=== PATIENT | male | born 1965 | race Caucasian/White ===

== ENCOUNTER → 2018-08-24 | Outpatient (CLI) | payer BC ==
[~2018-08-24] MED LIST: ASPIR 8181 MG PO; IOPAMIDOL 300 MG/ML 15ML VIAL IT ONE; LIDOCAINE HCL 1% LOCAL INJ 20 ML VIAL ONE; LORTAB 10-5001 EACH PO; VITA-C120 GM PO
--- NOTE | 2018-08-24 14:25 | Diagnostic Imaging Report ---
PROCEDURE:MYELOGRAM CERVICAL INCL INJ COMPARISON:None. INDICATIONS:LEFT ARM NUMBNESS/WEKNESS TECHNIQUE:The procedure was explained to the patient in detail including complications. After consent was obtained, the patient was transferred to the fluoroscopy suite and placed in the prone position. Plain films in the PA and lateral projections of the cervical and lumbar were obtained and reviewed. The skin in the lower back was prepped and draped in the usual sterile fashion. A 25G needle was used to infiltrate the skin and subcutaneous soft tissues with 1% Xylocaine. Under fluoroscopic guidance, 22 G spinal needle was then advanced into the thecal sac at the L4-L5 level without complications. Once the position of the needle was verified and clear colorless CSF fluid was visualized, 10 cc of Isovue-300 M were injected without complications. Spot films in the AP, lateral and oblique projections were obtained. Following the procedure, the patient was transferred to the CT suite where a scan of the cervical region was obtained. Fluoroscopy time: 1.9 minutes Total dose: 51.07 mGy FINDINGS: Mild ventral extradural defects at C4-C5 and C5-C6. Anterior fusion hardware at C6-C7. CONCLUSION: 1. Technically successful cervical myelogram. No immediate complications. 2. Please see the full report associated with the post myelogram CT. Chip Hdz D.O. Dictated by: Chip Hdz D.O. on 08/24/2018 at 14:35 Electronically approved by: Chip Hdz D.O. on 08/24/2018 at 14:35
--- NOTE | 2018-08-26 10:54 | Diagnostic Imaging Report ---
EXAMINATION: CT Myelogram of the Cervical Spine HISTORY:Neck pain and tingling and numbness of arms. COMPARISON:Cervical myelogram, same date. TECHNIQUE: Multidetector helical axial images were obtained from the foramen magnum to T1 following myelography . The images were reconstructed using bone and soft tissue algorithms and were viewed in axial, sagittal and coronal planes. For details of the injection procedure, see the report of the myelogram. Dose modulation, iterative reconstruction, and/or weight based adjustment of the mA/kV was utilized to reduce the radiation dose to as low as reasonably achievable. Intrathecal contrast:Please refer to fluoroscopic myelogram report for detail. FINDINGS: Curvature: Straightening of normal lordosis. Vertebrae:No evidence of neoplasm, infection, or fracture. Prior anterior discectomy and fusion of C6 and C7. No hardware failure. Soft tissues: No abnormalities. Spinal canal caliber: Developmentally normal. Degenerative changes: C1-C2: Moderate narrowing of the joint space. C2-C3: No abnormalities. C3-C4: Mild bilateral neural foraminal narrowing due to uncovertebral arthropathy. No canal stenosis or disc herniation. C4-C5: Mild bilateral neural foraminal narrowing due to uncovertebral arthropathy. No canal stenosis or disc herniation. C5-C6: Moderate bilateral neural foraminal narrowing due to uncovertebral arthropathy and diffuse disc bulge. No canal stenosis or disc herniation. C6-C7: No abnormalities. C7-T1: Mild diffuse disc bulge. No foraminal or canal stenosis. IMPRESSION: 1. Prior anterior discectomy and fusion of C6 and C7. 2. Mild degenerative changes with moderate bilateral neural foraminal narrowing at C5-C6. 3. No canal stenosis. Signed by: Dr. Anel Cosby M.D. on 08/26/2018 10:51 AM
== END ==
LOC: DX 09:59
PROVIDERS: ATTEND Neurological Surgery
DX: M54.12 Radiculopathy, cervical region (principal)
CPT/HCPCS: 72126; Q9967; 62302; J2001